=== PATIENT | male | born 1980 | race African-American/Black ===

== ENCOUNTER 2019-05-20 16:32 | Emergency (ER) | payer OTHER, SELFPAY ==
[2019-05-20 16:48] VITALS: BP 143/100; PULSE 83; RESP 16; TEMP 36.8; O2SAT 98
--- NOTE | 2019-05-20 17:22 | ED.GENADULT ---
HPI - General Adult General Chief complaint: Unspecified Stated complaint: Shortness of Breath Time Seen by Provider: 05/20/19 17:22 Source: patient and RN notes reviewed Mode of arrival: ambulatory Limitations: no limitations History of Present Illness HPI narrative: 39 year old male who present to [facility] care with complaints of having anxiety and feeling short of breath at times for the past few weeks. Patient states that his PCP wanted him to go to [facility] to see a repairer about a month ago because he was having some rapid heart beats but he just doesn't have a way over there. Patient states that he hasn't been taking his anxiety medication because he doesn't know which one is making it so he can't get an erection, is tearful states that his is saying that she wants a divorce now and is upset about his family trouble. Patient admits to daily tobacco use, says he feel some shortness of breath at times. Patient has coarse lung sounds with occasional scattered wheeze noted, denies any chest pain, diaphoresis, nausea or any radiation of pain to arm or back. Patient is very anxious, tearful throughout whole interview. Respiration are even an nonlabored is able to speak in full sentences, no tachypnea noted, SAO2 98% on room air. Patient denies any recent cold symptoms, cough, nasal or feelings of chest congestion, no fevers chills or sweats. MD complaint: anxiety, shortness of breath Onset (ago): week(s) (4) Location: chest (shortness of breath) Radiation: other (no pain stated) Severity: moderate Quality: other (no pain stated) Pain Consistency: other (denies any acute pain) Relieving factors: none Exacerbating factors: other (activity and deep breaths) Associated symptoms: other (anxiety, shortness of breath) Treatments prior to arrival: none Related Data Home Medications Medication Instructions Recorded Confirmed cyclobenzaprine 5 mg PO DAILY 05/20/19 05/20/19 Allergies Allergy/AdvReac Type Severity Reaction Status Date / Time No Known Allergies Allergy Verified 05/20/19 16:51 Review of Systems Review of Systems: Narrative: CONSTITUTIONAL: Denies fever, chills, or sweats. EYES: Denies visual changes, redness, or discharge. ENT: Denies rhinorrhea, congestion, sore throat, or otalgia. CARDIOVASCULAR: Denies chest pain, palpitations, or edema, reports episodes of fast heart beats 1 month ago. RESPIRATORY: Denies cough, states some dyspnea. GASTROINTESTINAL: Denies abdominal pain, nausea, vomiting, or diarrhea. GENITOURINARY: Denies dysuria or hematuria. SKIN: Denies rash or itching. MUSCULOSKELETAL: Denies back pain, joint pain, or myalgia. NEUROLOGIC: Denies headache, numbness, or weakness. PSYCHIATRIC: positive anxiety or depression. All systems reviewed & are unremarkable except as noted in HPI and below PMFSH Past Medical History Medical History (Updated 05/22/19 @ 12:42 by Myriam Orozco NP) Anxiety Back pain Social History Social History (Updated 05/20/19 @ 17:46 by Myriam Orozco NP) Smoking status: Current every day smoker Living arrangements: with family Gender identity (if verbalized by the patient): Male Comments At time of signature, agree with nursing past medical, surgical, social and family history. There is no relevant family history pertinent to the presenting complaint Exam Narrative: Exam Narrative: GENERAL: Well-appearing, well-nourished, and in no acute distress. HEAD: Normocephalic, atraumatic. EYES: PERRLA and EOMI. ENT: Nares clear, no rhinorrhea or epistaxis. Mucous membranes moist.TM's normal with good light reflex, throat pink with no swelling or exudates, no tonsil enlargement NECK: Supple.no lymphadenopathy CHEST: Coarse with scattered wheezes on auscultation. No respiratory distress.SAO2 98% on room air, no tachypnea or accessory muscle use HEART: Regular rate and rhythm. No murmur heard. Normal peripheral pulses. ABDOMEN: Soft, nontender, nondistende
== END 2019-05-20 17:45 | disposition home or self-care (01) ==
PROVIDERS: Emergency Provider Registered Nurse; PCP Family Medicine
DX: J40 Bronchitis, not specified as acute or chronic (principal); F41.9 Anxiety disorder, unspecified; F17.200 Nicotine dependence, unspecified, uncomplicated
CPT/HCPCS: 99213; G0463